=== PATIENT | male | born 1990 | race Caucasian/White ===

== ENCOUNTER 2017-10-01 16:43 | Emergency (ER) | payer BC ==
--- NOTE | 2017-10-02 11:17 | CT ---
INDICATION: Hit in the right mormonism area, moderate pain and pain TMJ. CT HEAD WITHOUT CONTRAST: Serial contiguous 2.5 and 5 mm sections were obtained through the brain without contrast and revealed the paranasal sinuses and mastoid air cells to be well-aerated. No cranial fracture site was seen. No shift of midline structures, ventricular abnormalities, or abnormal areas of density were identified - no bleeding site or hematoma was seen. IMPRESSION: Normal CT brain without contrast. Total exam DLP = 949.36 mGy-cm. Report was given in person to Dr. Perry soon after [facility]
--- NOTE | 2017-10-02 11:24 | CT ---
INDICATION: Hit in the right buddhism area, moderate pain and pain TMJ. CT CERVICAL SPINE: Spiral 2.5 mm axial sections were obtained through the cervical spine with sagittal and coronal reconstructions. Total exam DLP = 437.35 mGy-cm. Vertebral body and disk heights were maintained. Some straightening is noted, which may be positional. The odontoid appeared to be intact. The axis and atlas were intact. Prevertebral space and bone density appear to be normal. There is noted a mild dextroconcave scoliosis of the cervical spine. Some very minimal degenerative change is noted at the C5-6 uncinate joint on the right. IMPRESSION: 1. No acute fracture or dislocation. 2. Minimal degenerative changes and mild scoliosis. Report was given in person to Dr. Perry [facility]
--- NOTE | 2017-10-02 12:55 | CT ---
INDICATION: Head trauma, right TMJ pain, right oriental orthodox pain, moderate to severe headache, concussion. CT MAXILLOFACIAL: Spiral 1.25 mm axial sections were obtained through the maxillofacial area on 10/01/2017. Sagittal and coronal reconstructions were obtained. No comparisons were available. Total exam DLP = 490.92 mGy-cm. The mandible is intact. TMJs were unremarkable. Zygomatic arches and frontal bones, as well as maxillary and nasal bone areas and frontal bone area showed no evidence of fracture sites. There is an opacified ethmoidal air cell on the right and a few on the left, likely due to retention cysts. The paranasal air cells and visualized mastoid air cells were otherwise well-aerated. No cranial fracture site was identified. IMPRESSION: No acute fracture or dislocation. Report was given in person to Dr. Perry soon [facility] . [facility]
--- NOTE | 2017-10-03 08:52 | ER ---
DATE SEEN: 10/01/2017 HISTORY: This 27-year-old, 8 cigarettes a day for 4 to 5 years' duration, comes in. [place] [employer], he was trying to move a 20-foot tier that weighs approximately 630 pounds. As he did this, he had a pry bar in the rail. The pry bar stabilized the rail as he twisted and moved it, but the rail chose to come back and returned to the position that it was before. As this occurred, the torque of the rail grabbed the pry bar and the pry bar acted as a handle and slammed into right side of his buddhism. No loss of hearing. No loss of consciousness. He had transient visual changes. He has moderate headache at 8/10. Normally, he does not have headaches. No rhinorrhea or otorrhea or changes in hearing. No neck pain. No chest, cardiac, abdominal, upper or lower extremity pain. REVIEW OF SYSTEMS: Negative except for noted above. PERSONAL HISTORY: The patient's weight is 280 pounds. He smokes 8 to 10 cigarettes per day. He does not wear glasses. No recent fever. He works for [employer]. MEDICATIONS: None. PHYSICAL EXAMINATION: VITAL SIGNS: Blood pressure 170/78, respirations 18, heart rate 75, oxygen saturation 100%, and temperature 36.7 degrees centigrade. GENERAL: This is a tall, muscular, 6 feet 3 or 4 inches man who has mild-to- moderate discomfort. He is very stoic, but he notes he has right-sided temp discomfort that is significant. He has mild right neck discomfort. HEENT: PERRLA intact. Eyegrounds are normal. No optic cup to disc abnormalities. Inspection of the face, no ecchymoses in the periorbital region or the lateral right TMJ buddhism region. No swelling noted. Moderate tenderness of the right TM joint at the end range of opening of his jaw. No crepitus noted. No compromise of his teeth. Pharynx without abnormality. Uvula is midline. Tongue is midline. NECK: No bruits. No thyromegaly or masses in neck. No cervical adenopathy. LUNGS: Clear to auscultation without rales, rhonchi, or wheezes. HEART: S1, S2. No irregular rate and rhythm. CHEST: No chest wall discomfort. ABDOMEN: Soft. No guarding. No abdominal discomfort. Bowel sounds normal. MUSCULOSKELETAL: Lower extremities without erythema or edema. Deep tendon reflexes normal, 1+ upper extremities and lower extremities. NEUROLOGIC: Cranial nerves 2 through 12 intact. Oriented x3. Gait appropriate. Hearing is appropriate. No tinnitus. No pronator drift. No decreased muscle strength. Gait is normal. Romberg is negative. No past pointing. IMAGING: CAT scan of the head did not reveal PRIMER BOXER abnormality or bleed. No fractures noted of the skull or cervical spine or subluxation of the cervical spine or TMJ abnormalities or TMJ fracture. ASSESSMENT: 1. Concussion. 2. Smoker. 3. Blow to the right side of the head with contusion of the soft tissues, is mild. 4. Neurological exam is normal. 5. Overweight, 280 pounds, but it is not much of a weight for his height. 6. Workman's Comp related injury, [facility]. PLAN: Ibuprofen or Tylenol. No pain medicine prescribed. Follow up with his doctor in a week. The patient will be off work for a week. No heavy lifting. He can engage in conversation, activity, and walking. The patient is very concerned, he would not have any money if he did not work and he cannot afford a week off. Further discussion will be engaged in that regard to discuss this issue. ADDITIONAL DIAGNOSIS: Neck muscle strain without significant injury. /[id number] WOLFGANG/AKBAR
== END 2017-10-01 18:50 | disposition home or self-care (01) ==
LOC: FB.ED 16:43
DX: S06.0X0A Concussion without loss of consciousness, initial encounter (principal); S00.93XA Contusion of unspecified part of head, initial encounter; F17.210 Nicotine dependence, cigarettes, uncomplicated; E66.3 Overweight; W22.8XXA Striking against or struck by other objects, initial encounter
CPT/HCPCS: 70450; 70486; 72125; 99284

== ENCOUNTER 2021-10-13 21:47 | Emergency (ER) | payer BC, OTHER ==
[2021-10-13] MEDS ORDERED: Ondansetron 4 MG Tab.DIS PO ONE (21:48)
[2021-10-13] MEDS ORDERED: Sodium Chloride 0.9% 1,000 ML IV ONE ×2 (22:14→22:15)
[2021-10-13] MEDS ORDERED: Ketorolac 30 MG/ML SDV IVPUSH ONE (22:16)
[2021-10-13] MEDS ORDERED: Ondansetron 4 MG/2 ML SDV IVPUSH ONE (22:16)
--- NOTE | 2021-10-13 22:37 | EDM.PDOC ---
ED HPI GENERAL MEDICAL PROBLEM - General Chief Complaint: Gastrointestinal Problem Stated Complaint: vomiting, abdominal discomfort Time Seen by Provider: 10/13/21 22:05 Source of Information: Reports: Patient History Limitations: Reports: No Limitations - History of Present Illness INITIAL COMMENTS - FREE TEXT/NARRATIVE: c/o diarrhea, n/v since 9a works for [employer], not work today has had COVID vax x 2 lives with and 2 children and pt with slight cough x 2d, no rhinorrhea no temp at home, has temp 100.7 frequent diarrhea and n/v, "too many too count" slight epigastric discomfort PMH: seasonal asthma meds: alb HFA, last used 3m ago - Related Data Allergies Allergy/AdvReac Type Severity Reaction Status Date / Time dust Allergy runny Uncoded 10/13/21 22:00 nose, congestion seasonal Allergy runny Uncoded 10/13/21 22:00 nose, congestion Home Meds: Home Meds Albuterol Sulfate [Albuterol Sulfate Hfa] 2 puff INH ASDIRECTED 10/13/21 [History] Fluticasone Propionate [Flovent HFA 110 MCG] 2 puff INH BID PRN 10/13/21 [History] Ondansetron [Ondansetron ODT] 4 mg PO Q6H PRN #8 tab.rapdis 10/14/21 [Rx] Past Medical History - Past Surgical History HEENT Surgical History: Reports: Tonsillectomy ED ROS GENERAL - Review of Systems Review Of Systems: See Below Constitutional: Reports: No Symptoms HEENT: Reports: No Symptoms Respiratory: Reports: Cough. Denies: Shortness of Breath Cardiovascular: Reports: No Symptoms Endocrine: Reports: No Symptoms GI/Abdominal: Reports: Abdominal Pain, Nausea, Vomiting : Reports: No Symptoms Musculoskeletal: Reports: No Symptoms Skin: Reports: No Symptoms Neurological: Reports: No Symptoms Psychiatric: Reports: No Symptoms Hematologic/Lymphatic: Reports: No Symptoms Immunologic: Reports: No Symptoms ED EXAM, GENERAL - Physical Exam Exam: See Below Exam Limited By: No Limitations General Appearance: Alert, WD/WN, No Apparent Distress Eye Exam: Bilateral Eye: Normal Inspection (no red/swell/exudate) Ears: Normal External Exam, Hearing Grossly Normal Nose: Normal Inspection, Normal Mucosa, No Blood Throat/Mouth: Normal Inspection Head: Atraumatic, Normocephalic Neck: Normal Inspection, Supple, Non-Tender, Full Range of Motion. No: Lymphadenopathy (R), Lymphadenopathy (L) Respiratory/Chest: No Respiratory Distress, Lungs Clear, Normal Breath Sounds, No Accessory Muscle Use Cardiovascular: Regular Rate, Rhythm, No Edema, No Murmur GI/Abdominal: Soft, Non-Tender, No Distention, Other (slight epigastric tender) Back Exam: Normal Inspection, Full Range of Motion, NT Extremities: Normal Inspection, Normal Range of Motion, Non-Tender, No Pedal Blas ma Neurological: Alert, Oriented, CN II-XII Intact, Normal Cognition, No Motor/Sensory Deficits Psychiatric: Normal Affect, Normal Mood Skin Exam: Warm, Dry, Intact, Normal Color, No Rash Lymphatic: No Adenopathy Course - Vital Signs Last Recorded V/S: Last Vital Signs Temp 38.2 C H 10/13/21 21:55 Pulse 108 H 10/13/21 21:55 Resp 16 10/13/21 21:55 BP 150/97 H 10/13/21 21:55 Pulse Ox 97 10/13/21 21:55 - Orders/Labs/Meds Labs: Laboratory Tests 10/13/21 10/13/21 10/13/21 Range/Units 22:30 22:42 22:42 WBC 13.2 H (3.2-10.1) x10-3/uL RBC 5.40 (3.90-5.90) x10(6)uL Hgb 15.7 (12.9-17.7) g/dL Hct 46.5 (38.3-50.1) % MCV 86.1 (80.8-98.7) fL MCH 29.1 (27.0-33.3) pg MCHC 33.8 (28.7-35.3) g/dL RDW 12.2 L (12.4-15.0) % Plt Count 328 (117-477) x10(3)uL MPV 7.9 (6.7-11.0) fL Add Manual Diff Yes Neutrophils % (Manual) 80 (46-82) % Band Neutrophils % 4 (0-6) % Lymphocytes % (Manual) 10 L (13-37) % Monocytes % (Manual) 5 (4-12) % Eosinophils % (Manual) 1 (0-5) % Sodium 138 (135-145) mmol/L Potassium 3.7 (3.5-5.3) mmol/L Chloride 100 (100-110) mmol/L Carbon Dioxide 22 (21-32) mmol/L BUN 19 H (7-18) mg/dL Creatinine 1.0 (0.70-1.30) mg/dL Est Cr Clr Drug Dosing 132.61 mL/min Estimated GFR (MDRD) > 60 (>60) BUN/Creatinine Ratio 19.0 (9-20) Glucose 98 (80-116) mg/dL Calcium 9.0 (8.6-10.2) mg/dL Total Bilirubin 0.9 (0.1-1.3) mg/dL AST 15 (5-25) IU/L ALT 35 (12-36) U/L Alkaline Phosphatase 64 (56-112) IU/L C-Reactive Protein (0.5-0.9) mg/dL Total Protein 8.9 H (6.0-8.0) g/dL Albumin 4.4 (3.5-5.2) g/dL Globulin 4.5 g/dL Albumin/Globulin Ratio 1.0 SARS-CoV-2 RNA (GEE) Negative (NEGATIVE) 10/13/21 Range/Units 22:42 WBC (3.2-10.1) x10-3/uL RBC (3.90-5.90) x10(6)uL Hgb (12.9-17.7) g/dL Hct (38.3-50.1) % MCV (80.8-98.7) fL MCH (27.0-33.3) pg MCHC (28.7-35.3) g/dL RDW (12.4-15.0) % Plt Count (117-477) x10(3)uL MPV (6.7-11.0) fL Add Manual Diff Neutrophils % (Manual) (46-82) % Band Neutrophils % (0-6) % Lymphocytes % (Manual) (13-37) % Monocytes % (Manual) (4-12) % Eosinophils % (Manual) (0-5) % Sodium (135-145) mmol/L Potassium (3.5-5.3) mmol/L Chloride (100-110) mmol/L Carbon Dioxide (21-32) mmol/L BUN (7-18) mg/dL Creatinine (0.70-1.30) mg/dL Est Cr Clr Drug Dosing mL/min Estimated GFR (MDRD) (>60) BUN/Creatinine Ratio (9-20) Glucose (80-116) mg/dL Calcium (8.6-10.2) mg/dL Total Bilirubin (0.1-1.3) mg/dL AST (5-25) IU/L ALT (12-36) U/L Alkaline Phosphatase (56-112) IU/L C-Reactive Protein 2.3 H (0.5-0.9) mg/dL Total Protein (6.0-8.0) g/dL Albumin (3.5-5.2) g/dL Globulin g/dL Albumin/Globulin Ratio SARS-CoV-2 RNA (GEE) (NEGATIVE) Meds: Medications Discontinued Medications Generic Name Dose Route Start Last Admin Trade Name Freq PRN Reason Stop Dose Admin Sodium Chloride 1,000 mls @ 999 mls/hr 10/13/21 22:14 10/13/21 22:15 Normal Saline IV 10/13/21 23:14 999 mls/hr .BOLUS ONE Administration Sodium Chloride 1,000 mls @ 999 mls/hr 10/13/21 22:15 10/13/21 23:25 Normal Saline IV 10/13/21 23:15 999 mls/hr .BOLUS ONE Administration Ketorolac Tromethamine 30 mg 10/13/21 22:16 10/13/21 22:24 Ketorolac 30 Mg/Ml Sdv IVPUSH 10/13/21 22:17 30 mg ONETIME ONE Administration Ondansetron HCl 4 mg 10/13/21 22:16 10/13/21 22:24 Ondansetron 4 Mg/2 Ml Sdv IVPUSH 10/13/21 22:17 4 mg ONETIME ONE Administration - Re-Assessments/Exams Free Text/Narrative Re-Assessment/Exam: 10/14/21 00:12 pt felt much better after 2 liters NS/Zofran/Toradol here in ED no n/v/d in ED 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 [employer] 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 work, told he needed to rest at least tomorrow inc'd wbc/segs c/w dehydration pt now states his resp sxs began 1 wk ago (not 2d ago), it is most likely that his low grade fever and CRP 2.3 and n/v/d are due to the inflammatory phase of an otherwise relatively mild case of COVID it is also likely that he is not infectious other dx including diverticulitis and colitis are much less likely Departure - Departure Time of Disposition: 00:00 Disposition: Home, Self-Care 01 Condition: Good Clinical Impression: Viral gastroenteritis, Dehydration - Discharge Information *PRESCRIPTION DRUG MONITORING PROGRAM REVIEWED*: Not Applicable *COPY OF PRESCRIPTION DRUG MONITORING REPORT IN PATIENT KATHY: Not Applicable Prescriptions: Ondansetron [Ondansetron ODT] 4 mg PO Q6H PRN #8 tab.rapdis PRN Reason: Nausea Instructions: Viral Gastroenteritis, Adult, Dehydration, Adult, COVID-19 Forms: ED Department Discharge, ED Return to Work/School Form Additional Instructions: It is very likely that your symptoms are caused by COVID even though your COVID test is negative (false negative tests occur for a variety of reasons). Your blood tests are consistent with COVID. Although it is unlikely that you are still infectious (that is, a risk to other people), you should wear a mask this week when out of the house and use good handwashing and social precautions. You should rest at home at least tomorrow. For nausea, take ondansetron ODT 4 mg 1 tab under the tongue every 6 hours for 4 doses. If you need additional doses, a prescription for additional pills has been sent to [facility], although you will need to call ahead before going in to pick it up to let the pharmacist know you are coming. For diarrhea, you can use loperamide 2 mg 1 tab after every loose stool up to 8 tabs in 24 hours. (Loperamide is available [id number].) If you feel worse, which is unlikely, you should see your doctor or return to the the Emergency Department. For heartburn, take liquid antacid 30 ml every 4 hours as needed. Sepsis Event Note (ED) - Focused Exam Vital Signs: Vital Signs Temp Pulse Resp BP Pulse Ox 10/13/21 21:55 38.2 C H 108 H 16 150/97 H 97
== END 2021-10-14 00:25 | disposition home or self-care (01) ==
LOC: FB.ED 21:47
DX: A08.4 Viral intestinal infection, unspecified (principal); E86.0 Dehydration; Z91.048 Other nonmedicinal substance allergy status; Z20.822 Contact with and (suspected) exposure to COVID-19
CPT/HCPCS: 36415; 80053; 85025; 86140; 87635; 96374; 96375; 99284; A9270; J1885; J2405; J7030; U0002

== ENCOUNTER 2022-04-15 21:47 | Emergency (ER) | payer OTHER ==
[2022-04-15 22:11] LABS: ESTIMATED GFR 118 mL/min (>60)
== END 2022-04-15 23:04 | disposition home or self-care (01) ==
LOC: FB.ED 21:47
DX: U07.1 COVID-19 (principal); R07.89 Other chest pain; Z91.048 Other nonmedicinal substance allergy status; Z79.899 Other long term (current) drug therapy
CPT/HCPCS: 36415; 71045; 80053; 83880; 84484; 85025; 85379; 93005; 99285